=== PATIENT | female | born 1990 | race Caucasian/White ===

== ENCOUNTER 2022-10-23 12:50 | Outpatient (CLI) | payer OTHER, SELFPAY ==
--- NOTE | 2022-10-23 13:27 | ECG_ITS ---
Measurements Intervals [place] Rate: 51 P: 41 VA: 126 QRS: 53 QRSD: 99 T: 37 QT: 462 QTc: 428 Interpretive Statements SINUS BRADYCARDIA INCOMPLETE RIGHT BUNDLE BRANCH BLOCK BASELINE ARTIFACT- I, II, III, AVR, AVL, V4 BORDERLINE ECG NO PREVIOUS ECG AVAILABLE FOR COMPARISON Electronically Signed On 10-23-2022 16:11:01 CDT by Josh Mendoza D.O.
== END 2022-10-23 12:51 | disposition home or self-care (01) ==
PROVIDERS: Visit Provider Otolaryngology
DX: R00.1 Bradycardia, unspecified (principal); Z86.79 Personal history of other diseases of the circulatory system; I45.19 Other right bundle-branch block
CPT/HCPCS: 93005

== ENCOUNTER 2022-10-28 00:08 | Day surgery (SDC) | payer OTHER, SELFPAY ==
[2022-10-21 13:53] VITALS: BMI 24.4
--- NOTE | 2022-10-21 13:54 | SUR.PREOP ---
Report to the Outpatient Waiting Room, entrance under the green pavilion located off [facility], at time _0600 on date _10/28/22 . Planned Procedure Time: _0730 . Time changes happen often and if your time is changed the preop area will call you the afternoon before. - You and your visitor will be asked to self-screen and do not enter if you have any COVID symptoms. - A mask is optional within the hospital at this time. Patients may have clear liquids (water, carbonated beverages, clear teas, apple juice) until 3 hours prior to surgery with a maximum of 20 ounces. - No food from midnight until time of surgery - Infants may have breast milk until 4 hours before surgery, infant formula 6 hours prior to surgery. - Children will be allowed to drink immediately following surgery. If applicable, please bring a bottle or sippy cup to assist with drinking. Juice, water, soda, and popsicles are readily available. For infants on formula, please bring formula the day of surgery. Pacifiers are allowed. Take the following medications with a SIP of water the morning of surgery: ___n/a DO NOT STOP ANY OF YOUR OTHER PRESCRIPTION MEDICATIONS PRIOR TO SURGERY ?EXCEPT THE FOLLOWING Medications to discontinue per physician n/a Date to take last dose___n/a Please no make-up, nail yakut, hairspray, perfume, deodorant, or body powder the day of surgery. No jewelry (including any body piercings) or valuables the day of surgery, leave them at home. Please take a shower or bath the night before, or the morning of, surgery with an antibacterial soap. Wear comfortable, loose fitting clothing. Children are encouraged to wear pajamas. - Jewelry must be removed prior to entering the operating room. Rings and piercings that are not removed may be cut off. - The hospital will not accept responsibility for valuables. - Please leave all valuables, including medications, at home the day of surgery. If you are going home after surgery, a licensed shuttle driver must drive you home. - NO public transportation without another adult if you receive anesthesia. - We recommend that an adult stay with you for 24 hours following discharge. - We also recommend that you do not drive, make important decision, drink alcoholic beverages, or take any drugs that were not prescribed by your health care provider for at least 24 hours after your discharge time. For Pediatric surgeries, we recommend two adults accompany the child home. Follow any additional instructions given to you from your surgeon. If you or anyone in your household have experienced Covid symptoms in the past week, please notify your surgeon or the nurse liaison at the phone number below for possible testing. Telephone instructions given to kosta nicolas and asked if any additional questions and then verbalized understanding. Patient advised to call surgeon office or pre surgery nurse liaison [phone] if any additional questions.
[2022-10-28] VITALS (7 sets, daily range): BP systolic 105–126; BP diastolic 66–86; PULSE 44–72; RESP 10–16; TEMP 36.4–36.5; O2SAT 98–100
[2022-10-28] MEDS: LACTATED RINGERS 1,000 ML 30 ML IV CONT ×2 (06:29→08:11)
[2022-10-28] MEDS: ACETAMINOPHEN 500 MG TABLET 1000 MG PO (06:39)
--- NOTE | 2022-10-28 06:42 | P.PNAN_ITS ---
Anes - Initial Pre Proc Eval Procedure: Operation Date: 10/28/22 07:30 Proposed Procedures p Bilateral Ear Tube Removal With Left Ear Fat Graft Myringoplasty - Jose Chapin MD Date/Time: 10/28/22 06:42 Surgeon: Jose Chapin MD Pre Op Diagnosis: Bilateral OM Patient Data Age: 32 Gender: F Height: 1.78 m Weight: 78.55 kg Allergies Allergy/AdvReac Type Severity Reaction Status Date / Time No Known Allergies Allergy Verified 10/28/22 06:16 Home Medications Medication Instructions Recorded Confirmed Type No Home Medications 10/21/22 10/28/22 History Patient hx anesthesia problems: none Family hx anesthesia problems: none Results Review: All pre-operative results and documents have been reviewed as part of the pre- operative evaluation. [facility] Past Medical History Medical History (Updated 10/28/22 @ 06:49 by Eran Storey DO) SVT (supraventricular tachycardia) no issues since ablation Surgical History Surgical History (Updated 10/28/22 @ 06:49 by Eran Storey DO) History of cardiac radiofrequency ablation 2018 Social History Social History Smoking status: Never smoker Living arrangements: with family Spiritual care concerns: No Anes - Eval Final PreProcedure Day of Procedure 10/28/22 06:42 Patient weight: normal Heart: regular rate and rhythm Lungs: clear to auscultation and normal air movement Airway: Mallampati scale class II Neurological: alert and oriented Last oral intake: >/= 8 hours ASA classification: II Emergent: no Anesthetic plan: proceed Anesthesia type and monitoring: general LMA and standard monitoring Results Review: All pre-operative results and documents have been reviewed as part of the pre- operative evaluation. Informed Consent: The patient's anesthetic plan and its attendant risks and benefits were discussed with the patient/family/POA. Questions were solicited and answers provided to the satisfaction of the patient/family/POA.
[2022-10-28] MEDS: SCOPOLAMINE 1.5 MG PATCH TRANSDERM (07:05)
--- NOTE | 2022-10-28 07:08 | WPDHPUPDATE1 ---
History and Physical Update Update Date/Time: 10/28/22 07:08 History and Physical has been reviewed, including an updated exam of the patient. There are NO changes in the patient's condition. Risks, benefits, and alternatives have been discussed and questions answered. Patient agrees to proceed with procedure.
[2022-10-28] MEDS: LIDO 1%/EPINEPHRINE 1:100,000 50 ML VIAL INFILTRATE (07:43)
--- NOTE | 2022-10-28 08:12 | P.OP_ITS ---
Procedure Note - Detailed Date of Procedure 10/28/22 Pre-op Diagnosis retained ear tubes with chronic infection Post-op Diagnosis Same Procedure Performed Right myringotomy with removal of tube from middle ear space Left tube removal with fat grat myringoplasty Surgeon Jose Chapin MD Anesthesia General Indications Chronic OM with hx of previous tubes, hx of cleft palate Findings There was a T-tube medialized into the right middle ear space. The left T-tube was within the TM and was also removed and repaired with fat graft. Description of Procedure Anh has a hx of cleft palate and previous ear tubes. Had recurrent OM, presented to ENT clinic and was found to have a likely medialized right tube and a retained and patent left T-tube. Decision made to remove both and repair the TM on the left. On date of surgery, the patient was identified in the preoperative holding area. Consent signed and verified. The patient was then taken back to the OR and placed under general anesthesia via laryngeal mask. A timeout was performed verifying the correct patient identity, laterality and procedure which they were. The patient was then prepped and draped for left fat graft. The right ear was first examined under binocular microscope. A myringotomy was made over the suspected tube. This revealed a retained blue T-tube in the middle ear space and it was grasped with an alligator forcep and carefully removed. Decision made to not repair the TM as it will likely heal on its own. Next, attention was directed to the left ear. A retained T-tube was within the Tm and carefully grasped and removed with alligator forceps. Carrillo pick was then used to freshen the edges of the tympanostomy. Next, a small amount of gelfoam packing was secured in the middle ear space to create a bed for the gra ft. Attention was then directed to the left ear lobule. A 1cm incision was made at the inferior aspect of the lobule after 1% lidocaine with 1:100k epinephrine was infiltrated. A piece of fat was harvested for grafting with care to avoid injury to surrounding skin. The harvest site was then closed with 5-0 fast absorbing suture in an interrupted fashion. The fat graft was then placed on the gelfoam, completely covering the LEFT perforation. Satisfied with placement, A cotton ball was placed in the ear canal, ointment and bandage placed on the harvest site, and care of the patient was returned to anesthesia who woke the patient up, removed LMA and transferred the patient to the PACU for recovery in stable condition without complication. Jose Chapin M.D. Estimated Blood Loss 1 Drains No Packing Yes (gelfoam in left middle ear) Pathology None sent Complications No immediate complications Condition Stable Disposition PACU
== END 2022-10-28 09:38 | disposition home or self-care (01) ==
PROVIDERS: Visit Provider Otolaryngology
PROC: (CPT 69424; principal; 2022-10-28 07:30)
DX: H69.83 Other specified disorders of Eustachian tube, bilateral (principal); H66.93 Otitis media, unspecified, bilateral; T85.698A Other mechanical complication of other specified internal prosthetic devices, implants and grafts, initial encounter; Y83.8 Other surgical procedures as the cause of abnormal reaction of the patient, or of later complication, without mention of misadventure at the time of the procedure
CPT/HCPCS: 69620; 69424; A9270; J1100; J2250; J2405; J2704; J3010; J7120

== ENCOUNTER 2023-11-06 09:39 | Outpatient (CLI) | payer OTHER, SELFPAY ==
[2023-11-06 10:29] LABS: Basophils Absolute Auto 0.1 K/mm3 (0.0-0.1); Eosinophils Absolute Auto 0.1 K/mm3 (0-0.3); Hematocrit 44.2 % (37.0-47.0); Hemoglobin 14.5 g/dL (12.0-15.0); Immature Granulocyte Absolute 0.01 K/mm3 (0.00-0.031); Immature Granulocyte Percent A 0.2 % (0-0.5); Lymphocytes Absolute Auto 1.99 K/mm3 (0.9-3.2); Lymphocytes Percent Auto 33.3 % (18.3-44.2); Mean Corpuscular HGB Conc 32.8 g/dl (32-36); Mean Corpuscular Hemoglobin 31.4 pg (26-34); Mean Corpuscular Volume 95.7 fl (80-100); Mean Platelet Volume 10.5 fl (7.4-10.4); Monocytes Absolute Auto 0.5 K/mm3 (0.1-0.6); Monocytes Percent Auto 8.2 % (2.6-8.5); Neutrophils Absolute Auto 3.3 K/mm3 (1.3-6.7); Neutrophils Percent Auto 55.3 % (45.5-73.1); Platelet Count Result 246 k/mm3 (150-375); Red Blood Count 4.62 M/mm3 (4.2-5.4); Red Cell Distribution Width 11.6 % (11.5-14.5)
[2023-11-06 10:52] LABS: Alanine Aminotransferase 81 U/L (6-35); Albumin Level 4.6 g/dL (3.5-5.1); Alkaline Phosphatase 109 U/L (38-126); Anion Gap 13 mmol/L (4-12); Aspartate Amino Transferase 66 U/L (14-36); Blood Urea Nitrogen 14 mg/dL (7-17); Calcium 9.5 mg/dL (8.4-10.2); Carbon Dioxide 27 mmol/L (22-30); Chloride 100 mmol/L (98-107); Estimated Glomerular Filt Rate > 60; Glucose 114 mg/dL (65-110); Potassium 4.5 mmol/L (3.4-5.0); Sodium 140 mmol/L (137-145)
[2023-11-06 11:12] LABS: Vitamin D 25 Hydroxy 70.5 ng/mL
[2023-11-06 15:27] LABS: Hemoglobin A1C 5.7 % (<5.7)
== END 2023-11-06 09:40 | disposition home or self-care (01) ==
LOC: ANHLAB 09:41
PROVIDERS: Visit Provider Nurse Practitioner Obstetrics & Gynecology
DX: Z00.00 Encounter for general adult medical examination without abnormal findings (principal)
CPT/HCPCS: 36415; 80053; 82306; 83036; 84443; 85025